=== PATIENT | female | born 1965 | race Caucasian/White ===

== ENCOUNTER → 2024-03-17 14:00 | Outpatient (CLI) | payer OTHER, MEDICAID, SELFPAY ==
--- NOTE | 2024-03-17 14:04 | DI.CT.S_ITS ---
PROCEDURE: CT CHEST W CON INDICATIONS: Dyspnea on Exertion TECHNIQUE: After the administration of intravenous contrast, 5 mm thick sections acquired from the pulmonary apices to the posterior costophrenic angles. 1 mm axial lung, 5 mm thick coronal and sagittal reformats and 7 mm axial MIP were acquired. For radiation dose reduction, the following was used: automated exposure control, adjustment of mA and/or kV according to patient size. COMPARISON: None. FINDINGS: Image quality: Diagnostic. Lower Neck: No enlarged lymph nodes. Thyroid: No thyroid nodules which require sonographic follow up, per consensus guidelines. Axillae: No enlarged lymph nodes. Chest Wall: Unremarkable. Bones: Unremarkable. Lungs and Pleura: Central and peripheral airways are normal without bronchial wall thickening or bronchiectasis. No suspicious nodules or masses. No ground-glass opacities, consolidations, pleural effusions, or pleural calcifications. No pneumothorax. Heart: Heart size is normal. No pericardial effusion. Thoracic Vessels: The aorta and pulmonary arteries demonstrate normal size. Mediastinum and Merari: No enlarged lymph nodes. Esophagus: No wall thickening. No hiatal hernia. Upper Abdomen: Decompressed gallbladder with subcentimeter size cholelithiasis. Indistinct hypodensities, mostly subcentimeter, scattered in the liver. Visible portions of upper abdominal organs are otherwise normal. IMPRESSION: No CT evidence of acute or chronic appearing pulmonary pathology. Cholelithiasis. Hepatic hypodensities are likely benign and most are too small to characterize. Dictated by: Lluvia Jimenez M.D. on 03/17/2024 at 16:16 Approved by: Lluvia Jimenez M.D. on 03/17/2024 at 16:22
== END ==
PROVIDERS: PCP Nurse Practitioner; Referring Provider Nurse Practitioner Family; Visit Provider Nurse Practitioner Family
DX: K80.20 Calculus of gallbladder without cholecystitis without obstruction (principal); R07.89 Other chest pain; R06.09 Other forms of dyspnea; R61 Generalized hyperhidrosis; R03.0 Elevated blood-pressure reading, without diagnosis of hypertension
CPT/HCPCS: 71260; Q9967

== ENCOUNTER → 2024-08-06 07:46 | Outpatient (CLI) | payer OTHER, MEDICAID, SELFPAY ==
--- NOTE | 2024-08-06 07:46 | DI.NM.S_ITS ---
PROCEDURE: NM PARATHYROID SPECT RADIOPHARMACEUTICAL: 22 mCi Tc-99m sestamibi IV. INDICATIONS: HYPERCALCEMIA TECHNIQUE: After intravenous administration of Tc-99m sestamibi, anterior planar images of the neck and mediastinum were obtained at approximately 10 minutes and 2-3 hours. SPECT images were acquired after the 10 minute planar images. COMPARISON: [facility], CT, CT CHEST W CON, 03/17/2024, 14:34. FINDINGS: On the early images, the thyroid gland is bilobed and has normal size and morphology focal radiotracer uptake is seen asymmetrically on the right thyroid region The delayed images shows preferential tracer retention at the right thyroid bed. The SPECT images demonstrate no abnormal activity in the neck. Upon review of prior chest CT on 03/17/2024, there is a 7 mm nodule behind the right thyroid lobe. IMPRESSION: Right parathyroid adenoma measuring 7 mm behind the right thyroid lobe with delayed tracer retention on SPECT. Dictated by: Alexandro Worthington M.D. on 08/06/2024 at 11:01 Approved by: Alexandro Worthington M.D. on 08/06/2024 at 11:03
== END ==
PROVIDERS: PCP Nurse Practitioner; Referring Provider Nurse Practitioner; Visit Provider Nurse Practitioner
DX: D35.1 Benign neoplasm of parathyroid gland (principal); E83.52 Hypercalcemia
CPT/HCPCS: 78071; A9500

== ENCOUNTER → 2025-07-21 07:49 | Outpatient (CLI) | payer OTHER, MEDICAID, SELFPAY | LOC: PHYS 07:51 | PROVIDERS: Family Provider Nurse Practitioner; PCP Nurse Practitioner; Referring Provider Orthopaedic Surgery; Visit Provider Orthopaedic Surgery | DX: G56.03 Carpal tunnel syndrome, bilateral upper limbs (principal); M79.641 Pain in right hand; M79.642 Pain in left hand | CPT/HCPCS: 95885; 95912 ==